=== PATIENT | male | born 1960 | race Caucasian/White ===

== ENCOUNTER 2019-08-11 14:00 | Outpatient (AMBR) | payer MEDICAID, SELFPAY ==
--- NOTE | 2019-08-08 16:08 | PT.OIERPT ---
PT OP Initial Eval Patient Information Visit Reasons: LEFT HAND Medical Diagnosis: M24.542 Treatment Dx #1: Left Wrist Mobility Deficits Treatment Dx #2: Left Wrist Pain Start of Care: 08/08/19 Initial Assessment Subjective Pt is a 59 y/o male c/o left hand cellulitis a few months ago where he needed his hand to be debride and clean. Pt mention that after a few surgery later his hand became contracted and stiff. Pt still has hand pain (7/10) with limited use. Pt has limitation with gripping, self care, cooking, cleaning, lifting, recreational activities, and performing normal ADLs. Pt plans on moving soon and will only like a few sessions. 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 Pt will benefit from physical therapy to increase wrist ROM, strength, and work on functional tasks. 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
--- NOTE | 2019-08-11 15:09 | PT.ODS1RPT ---
PT OP Progress/Discharge Note Date of Service: August 11, 2019 Progress Note/DC Note Progress Note/Discharge Note: DC Note Patient Information Visit Reasons: LEFT HAND Medical Diagnosis: M24.542 Treatment Dx #1: Left Wrist Mobility Deficits Treatment Dx #2: Left Wrist Pain Service Continue Service or Discharge: Discharge Discharge Date: 08/11/19 Status Subjective: Pt mention that his hand is the same. Pt still notice stiffness and finger contracture, however, will like to only do today's session and be discharge from care. Pt is planning to move soon. Pt still has limitation with gripping activities, chores, self care, cook, wolfgang, and ADLs. 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 Pt wanted to be release from care after today's session with HEP. Pt was instructed on HEP and given a sheet of exercises to continue at home and will be d/c per Pt's request. Pt did not meet set goals in therapy, thank you for your referrals. Plan: D/C home with HEP and follow up with MD ALBARADO Office Procedures PT Procedures PT Date of Service: 08/11/19 Therapeutic Exercise 30 minutes: Yes PT Procedures PT Date of Service: 08/08/19 OP PT Eval Mod Complex 30 minutes: Yes
== END 2019-09-01 23:59 | disposition home or self-care (01) ==
PROVIDERS: PCP Family Medicine; Referring Provider Family Medicine; Visit Provider Surgery
DX: M24.542 Contracture, left hand (principal); M25.532 Pain in left wrist
CPT/HCPCS: 97110; 97162